=== PATIENT | male | born 1960 | race Caucasian/White ===

== ENCOUNTER 2019-06-11 08:26 | Outpatient (CLI) | payer OTHER, SELFPAY ==
[2019-06-11 08:39] LABS: Add Urine Microscopic? YES; Appearance Urine Clear (Clear); Basophils Absolute Auto 0.04 K/mm3 (0.00-0.10); Basophils Percent Auto 0.6 % (0.0-1.0); Bilirubin Urine Negative (Negative); Blood Urine 1+ (Negative); Color Urine Yellow (Yellow); Eosinophils Absolute Auto 0.18 K/mm3 (0.02-0.50); Eosinophils Percent Auto 2.8 % (1.0-6.0); Glucose Urine UA Negative (Negative); Hematocrit 44.2 % (40.0-54.0); Hemoglobin 14.7 g/dL (14.0-18.0); Immature Granulocyte Absolute 0.02 K/mm3 (0.00-0.00); Immature Granulocyte Percent A 0.3 % (0.0-0.0); Ketones Urine Negative (Negative); Leukocyte Esterase Ur Negative (Negative); Lymphocytes Absolute Auto 2.11 K/mm3 (1.10-4.50); Lymphocytes Percent Auto 32.6 % (18.0-42.0); Mean Corpuscular HGB Conc 33.3 g/dL (32.0-36.0); Mean Corpuscular Hemoglobin 30.6 pg (27.0-31.0); Mean Corpuscular Volume 92.1 fL (78.0-102.0); Mean Platelet Volume 10.3 fl (8.7-11.0); Monocytes Absolute Auto 0.42 K/mm3 (0.10-0.90); Monocytes Percent Auto 6.5 % (2.0-11.0); Neutrophils Absolute Auto 3.7 K/mm3 (1.7-7.2); Neutrophils Percent Auto 57.2 % (50.0-70.0); Nitrate Urine Negative (Negative); Platelet Count Result 225 K/mm3 (150-420); Protein Urine Negative (Negative); Red Cell Distribution Width 13.5 % (11.6-14.4); Specific Grav Ur >= 1.030 (1.010-1.020); Urobilinogen Urine 0.2 mg/dL (0.2-1.0); White Blood Count 6.5 K/mm3 (4.8-10.8); pH Urine 5.5 (5.0-8.0)
[2019-06-11 08:51] LABS: RBC Urine 0-2 /hpf (0-2); WBC Urine 0-3 /hpf (0-3)
[2019-06-11 08:52] LABS: Bacteria Urine Trace /hpf; Mucus Urine Few /lpf; Squamous Epithelial Cell Urine Rare /hpf (Few)
[2019-06-11 09:37] LABS: Alanine Aminotransferase 45 U/L (16-63); Albumin Level 3.9 g/dL (3.4-5.0); Alkaline Phosphatase 72 U/L (46-116); Anion Gap 13.4 mmol/L (7-16); Aspartate Amino Transferase 28 U/L (15-37); Bilirubin,Total 0.5 mg/dL (0.00-1.00); Blood Urea Nitrogen 18 mg/dL (7-18); CRP 0.4 mg/dL (0.0-0.9); Calcium 9.1 mg/dL (8.5-10.1); Carbon Dioxide 27 mmol/L (21-32); Chloride 106 mmol/L (98-108); Cholesterol 215 mg/dL (0-200); Estimated Glomerular Filt Rate > 60; Glucose 122 mg/dL (70-99); HDL Direct 60 mg/dL (40-60); LDL Cholesterol Calculated 136 mg/dL (<130); Osmolality Calculated 296 mOsm/kg (285-295); Potassium 4.4 mmol/L (3.5-5.1); Sodium 142 mmol/L (136-145); Thyroid Stimulating Hormone 1.65 uIU/mL (0.36-3.74); Triglycerides 95 mg/dL (0-150)
[2019-06-14 07:20] LABS: Methylmalonic Acid 111 nmol/L (87-318)
== END 2019-06-11 08:27 | disposition home or self-care (01) ==
PROVIDERS: Visit Provider Internal Medicine
DX: R06.00 Dyspnea, unspecified (principal); R42 Dizziness and giddiness; I95.1 Orthostatic hypotension; E78.5 Hyperlipidemia, unspecified
CPT/HCPCS: 36415; 80053; 80061; 81001; 83921; 84443; 85025; 86140

== ENCOUNTER 2020-02-26 08:07 | Outpatient (CLI) | payer MEDICARE, SELFPAY ==
[2020-02-26 08:23] LABS: Appearance Urine Clear (Clear); Basophils Absolute Auto 0.04 K/mm3 (0.00-0.10); Basophils Percent Auto 0.6 % (0.0-1.0); Bilirubin Urine Negative (Negative); Color Urine Yellow (Yellow); Eosinophils Absolute Auto 0.15 K/mm3 (0.02-0.50); Eosinophils Percent Auto 2.3 % (1.0-6.0); Glucose Urine UA Negative (Negative); Hematocrit 45.9 % (40.0-54.0); Hemoglobin 14.5 g/dL (14.0-18.0); Immature Granulocyte Absolute 0.02 K/mm3 (0.00-0.00); Immature Granulocyte Percent A 0.3 % (0.0-0.0); Ketones Urine Negative (Negative); Leukocyte Esterase Ur Negative LEU/UL (Negative); Lymphocytes Absolute Auto 1.99 K/mm3 (1.10-4.50); Lymphocytes Percent Auto 31.1 % (18.0-42.0); Mean Corpuscular HGB Conc 31.6 g/dL (32.0-36.0); Mean Corpuscular Hemoglobin 29.4 pg (27.0-31.0); Mean Corpuscular Volume 93.1 fL (78.0-102.0); Monocytes Absolute Auto 0.39 K/mm3 (0.10-0.90); Monocytes Percent Auto 6.1 % (2.0-11.0); Neutrophils Absolute Auto 3.8 K/mm3 (1.7-7.2); Neutrophils Percent Auto 59.6 % (50.0-70.0); Nitrate Urine Negative (Negative); Platelet Count Result 238 K/mm3 (150-420); Protein Urine Negative (Negative); Red Blood Count 4.93 M/mm3 (4.70-6.10); Red Cell Distribution Width 13.5 % (11.6-14.4); Specific Grav Ur >= 1.030 (1.010-1.020); Urobilinogen Urine 0.2 mg/dL (0.2-1.0); White Blood Count 6.4 K/mm3 (4.8-10.8); pH Urine 5.5 (5.0-8.0)
[2020-02-26 08:30] LABS: Add Urine Microscopic? YES; Blood Urine Trace-Intact (Negative); Squamous Epithelial Cell Urine None seen /hpf (Few); WBC Urine 0-3 /hpf (0-3)
[2020-02-26 08:31] LABS: Bacteria Urine 1+ /hpf; Mucus Urine Heavy /lpf
[2020-02-26 09:25] LABS: Alanine Aminotransferase 54 U/L (16-63); Albumin Level 3.7 g/dL (3.4-5.0); Alkaline Phosphatase 79 U/L (46-116); Anion Gap 9 mmol/L (8-16); Aspartate Amino Transferase 25 U/L (15-37); Bilirubin,Total 0.5 mg/dL (0.00-1.00); Blood Urea Nitrogen 13 mg/dL (7-18); Calcium 8.7 mg/dL (8.5-10.1); Carbon Dioxide 27 mmol/L (21-32); Chloride 105 mmol/L (98-108); Estimated Glomerular Filt Rate > 60; Glucose 120 mg/dL (70-99); Osmolality Calculated 293 mOsm/kg (285-295); Potassium 4.3 mmol/L (3.5-5.1); Prostate Specific Antigen 1.4 ng/mL (< OR = 4.0); Sodium 141 mmol/L (136-145); Total Protein 6.7 g/dL (6.4-8.2)
== END 2020-02-26 08:08 | disposition home or self-care (01) ==
PROVIDERS: PCP Internal Medicine; Visit Provider Internal Medicine
DX: M25.562 Pain in left knee (principal); Z12.5 Encounter for screening for malignant neoplasm of prostate
CPT/HCPCS: 36415; 80053; 81001; 84153; 85025; 87081; G0103

== ENCOUNTER 2020-03-05 11:06 | Outpatient (CLI) | payer MEDICARE, SELFPAY ==
[2020-03-05 11:40] LABS: Hemoglobin A1C 5.8 % (<5.7)
== END 2020-03-05 11:07 | disposition home or self-care (01) ==
LOC: CHSLAB 11:07
PROVIDERS: PCP Internal Medicine; Visit Provider Internal Medicine
DX: R73.09 Other abnormal glucose (principal)
CPT/HCPCS: 36415; 83036

== ENCOUNTER 2020-03-22 10:38 | Outpatient (RCR) | payer MEDICARE, OTHER, SELFPAY ==
--- NOTE | 2020-03-22 11:44 | PTOPEVAL ---
Thank you for referring Beltran Levin to [facility].? The patient is scheduled to be seen for therapy? __3__x/week for _4__ weeks. Please review, sign, date and return this plan of care DION. I agree with and certify that the following plan of care is medically necessary. Referring Physician Date Admitting Provider: Attending Provider: PHYSICIAN NOT ON STAFF Referring Provider: *PT Outpatient Evaluation Start: 03/22/20 10:59 Freq: Status: Active Protocol: Document 03/22/20 11:00 NICK (Rec: 03/22/20 11:23 NICK [email or web address]) Therapy Assessment Status Assessment Status Assessment Status Evaluation Evaluation Information Problem Diagnosis s/p right TKA Onset 03/18/20 Subjective Information Pt. reports that he underwent Query Text:As Reported By Patient/ knee replacement last week Family . He states that he does have pain. He reports that he is currently doing exercise. He is using a walker. He reports that his goal for therapy is to return to walking normal and reduce pain. Pain Assessment Pain Scale Pain Scale Used Numeric (1 - 10) Self Report Pain Assessment Right Knee(s) Reported Pain Level 6 Lowest Pain Intensity 6 Greatest Pain Intensity 9 Pain Score Pain Score 6: Self Report Lower Extremity Range of Motion General Lower Extremity Range of Motion Gross Lower Extremity Range of Motion right knee AROM 8-74 Comments left knee AROM 0-135 Lower Extremity Muscle Strength Testing General Lower Extremity Strength Gross Lower Extremity Strength right hip flexion 4/5, left hip flexion 5/5, right knee flexion 3/5, left knee flexion 5/5, right knee extension 3/5 , left knee extension 5/5, bilateral ankle dorsiflexion 5 /5 Extremity Circumference Assessment Circumference Assessment Location Right Body Part Knee Site Descriptor ([place]) joint line Circumference (cm) 49 Noninvolved Side Circumference (cm) 44 Gait Assessment Gait Assessment Additional Ambulation Comments Pt. ambulates with use of a ww demonstrating slightly decreased stance time on the right with decreased stride on the left. General Exercise General Exercises Exercise Description
--- NOTE | 2020-04-16 11:01 | PTOPEVAL ---
Thank you for referring Beltran Levin to [facility].? The patient is scheduled to be seen for therapy? ___3_x/week for 6 visits. Please review, sign, date and return this plan of care DION. I agree with and certify that the following plan of care is medically necessary. Referring Physician Date Admitting Provider: Attending Provider: PHYSICIAN NOT ON STAFF Referring Provider: *PT Outpatient Evaluation Start: 03/22/20 10:59 Freq: Status: Active Protocol: Document 04/16/20 10:16 NICK (Rec: 04/16/20 11:00 NICK [email or web address]) Therapy Assessment Status Assessment Status Assessment Status Re-evaluation Evaluation Information Problem Diagnosis s/p right TKA Subjective Information Pt. reports that he is still Query Text:As Reported By Patient/ experiencing pain. He reports Family that he is walking without an AD. He states that he still has pain at night that limits his sleep. He reports that he is still stiffn getting into and out of his vehicle. He still notes slight limp and trouble with walking upright. Pain Assessment Pain Scale Pain Scale Used Numeric (1 - 10) Self Report Pain Assessment Right Knee(s) Reported Pain Level 4 Pain Score Pain Score 4: Self Report Lower Extremity Range of Motion General Lower Extremity Range of Motion Gross Lower Extremity Range of Motion right knee AROM 2-120 degrees Comments Lower Extremity Muscle Strength Testing General Lower Extremity Strength Gross Lower Extremity Strength right hip flexion 4+/5, right knee flexion 4+/5, right knee extension 4+/5, b Extremity Circumference Assessment Circumference Assessment Location Right Body Part Knee Site Descriptor ([place]) joint line Circumference (cm) 47 Noninvolved Side Circumference (cm) 44 Gait Assessment Gait Assessment Additional Ambulation Comments Pt. ambulates over level surface demonstrating decreased stance time on the right with decreased stride length on the left. Pt. requires no AD for ambulation. General Exercise General Exercises Exercise Description -nustep x 10 minutes level 5 Query Text:Record Sets, Reps, -slantboard stretch x 3 Resistance, and Position minutes -step ups x 20 6 -lateral step ups x 20 6
== END 2020-05-05 10:21 | disposition home or self-care (01) ==
LOC: CHSPT 10:38
PROVIDERS: PCP Internal Medicine
DX: Z96.651 Presence of right artificial knee joint (principal)
CPT/HCPCS: 36415; 85610; 97016; 97110; 97161; 97530

== ENCOUNTER 2020-03-29 09:46 | Outpatient (RCR) | payer MEDICARE, SELFPAY ==
[2020-03-22 11:11] LABS: Prothrombin Time 10.2 Seconds (9.64-11.0)
[2020-03-25 09:55] LABS: INR 1.1; Prothrombin Time 11.4 Seconds (9.64-11.0)
[2020-03-29 10:10] LABS: INR 1.3; Prothrombin Time 12.9 Seconds (9.64-11.0)
== END 2020-06-20 23:59 | disposition home or self-care (01) ==
LOC: CHSLAB 09:46
PROVIDERS: PCP Internal Medicine
DX: M17.11 Unilateral primary osteoarthritis, right knee (principal); Z79.01 Long term (current) use of anticoagulants
CPT/HCPCS: 99199; 36415; 85610

== ENCOUNTER 2020-06-09 09:32 | Emergency (ER) | payer MEDICARE, OTHER, SELFPAY ==
--- NOTE | ~2020-06-09 | CT_ITS ---
EXAMINATION: CTA chest PE protocol EXAM DATE: 06/09/2020 11:52 INDICATION: Dyspnea Chest pain and SOB TECHNIQUE: Spiral CTA of the chest (pulmonary arteries) was performed with 100 cc Omnipaque 350 intr avenous contrast injection. Images were acquired during the pulmonary arterial phase. Coronal maxi mum intensity projection 3D-reconstructions were created by the technologist on dedicated workstation . Axial, coronal and sagittal reformatted images were reviewed. The dose-length product (DLP) for t his examination was 739.20 mGy-cm. The exposure was tailored according to patient size (auto mA exp osure control), and iterative reconstruction (ASIR) was used as additional dose reduction technique. Comparison is made to prior examination from 06/19/2019. FINDINGS: There is suboptimal pulmonary arterial opacification. There are no intraluminal filling de fects within the 1st through 3rd order pulmonary arteries. No pulmonary emboli suspected. No thoraci c aortic dissection. The lungs are clear. There are no pleural or pericardial effusions. Tracheo bronchial tree is patent. There is no mediastinal, hilar or axillary lymphadenopathy. There is no pneumothorax. Heart normal in size. There is mild to moderate coronary arterial calcification, a rterial sclerosis. Upper abdomen is unremarkable. There is thoracic spondylosis without osteoblast ic or osteolytic lesions identified. IMPRESSION: Suboptimal opacification but no pulmonary emboli suspected. Clear lungs. Reviewed, dictated and finalized at location A. AL JUDGE IMPRESSION: Suboptimal opacification but no pulmonary emboli suspected. Clear l ungs.
--- NOTE | ~2020-06-09 | XR_ITS ---
XR chest 1V portable 06/09/2020 10:30 Indication: Left-sided chest pain Procedure: AP portable chest Comparison: Comparison to multiple prior studies sequentially, with oldest reviewed study dated 12/04. Findings: Heart size normal. No focal air space disease, pulmonary edema, pleural effusion or suspect ed pneumothorax. No acute osseous abnormality. Impression: 1: No acute cardiopulmonary disease. Reviewed, dictated and finalized at location B. CH SALES AND SERVICE REPRESENTATIVE Impression: 1: No acute cardiopulmonary disease.
--- NOTE | 2020-06-09 09:44 | ED.CHESTPAIN ---
HPI - Chest Pain General Chief Complaint: Chest Pain Stated Complaint: not feeling quite right Time Seen by Provider: 06/09/20 09:36 Source: patient Mode of arrival: ambulatory Limitations: no limitations History of Present Illness HPI narrative: 59-year-old man with a history of smoking comes in today complaining of pain in his left upper chest which started about 5:00 a.m.. He states that lasted for couple of hours and is not diminished but not completely gone. He states he has some lightheadedness at the moment. States that he had some mild shortness of breath with his symptoms but has had no nausea, syncope, vomiting, abdominal pain, cough or cold symptoms, or recent illness. He has had no recent sick exposures. MD complaint: chest pain Onset (ago): hour(s) (4) Timing of current episode: episodic and still present ( But diminished) Prior episodes: No Onset: during rest Pain location: left chest Pain radiation: none Severity: moderate Quality: tightness Relieving factors: nothing Exacerbating factors: nothing Associated symptoms: vomiting and dyspnea Treatment prior to arrival: none Risk Factors Coronary artery disease risk factors: smoking history Related Data Home Medications Medication Instructions Recorded Confirmed lorazepam 1 mg PO TID PRN 06/09/20 06/09/20 Allergies Allergy/AdvReac Type Severity Reaction Status Date / Time No Known Allergies Allergy Verified 06/09/20 09:55 Review of Systems Constitutional: Constitutional: Denies body ache(s) and Denies chills Comments: no fever Eyes: Eyes: Denies change in vision, Denies loss of vision and Denies photophobia ENT: Denies otalgia, Denies facial pain, Reports headache(s) ( last night) and Denies sore throat Cardiovascular: Cardiovascular: Reports as per HPI, Reports chest pain, Denies lightheadedness and Denies palpitations Respiratory: Respiratory: Reports as per HPI, Denies cough, Reports dyspnea, Denies stridor and Denies wheezing Gastrointestinal: Gastrointestinal: Denies abdominal pain, Denies diarrhea, Denies nausea and Denies vomiting Musculoskeletal: Musculoskeletal: Denies back pain, Denies arthralgias and Denies joint swelling Integumentary/Breasts: Skin/Breast: Denies erythema, Denies rash and Denies wounds Neurologic: Denies confusion, Denies vertigo, Denies dizziness, Denies syncope, Denies focal weakness, Denies numbness and Denies weakness Hematologic/Lymphatic: Hematologic/Lymphatic: Denies easy bleeding and Denies easy bruising Allergic/Immunologic: Allergic/Immunologic: Denies urticaria and Denies tongue swelling PMFSH Surgical History Surgical History (Updated 06/09/20 @ 10:17 by Vu Wick MD) H/O knee surgery bilateral Social History Social History (Updated 06/09/20 @ 10:17 by Vu Wick MD) Smoking status: Current every day smoker Alcohol intake: current Substance use type: marijuana Living arrangements: with family Gender identity (if verbalized by the patient): Male Exam Const: General: cooperative, healthy appearing, alert, awake, Physically active and acute distress Nutritional Appearance: overweight Orientation/consciousness: patient oriented x3 Limitations: no limitations HENMT: Head: normal to inspection Ears: external ears normal, TM's normal bilaterally and EAC's normal General nose exam: Normal external nose present Face and sinus: normal facial exam Mouth: Yes Normal oral and palatal mucosa present Throat: posterior oropharynx normal Eyes: Pupils: Equal, round and reactive pupils present EOM: EOMs intact bilaterally Resp: Effort & Inspection: normal respiratory effort, able to speak in complete sentences, not labored and no respiratory distress Auscultation: clear to auscultation bilaterally, no rales, no rhonchi and no wheezes Cardio: Rate: regular rate Rhythm: regular rhythm Heart sounds: no murmurs GI: GI Palp: No abdominal tenderness Auscultation: normal
[2020-06-09 09:45] VITALS: BP 136/78; PULSE 94; RESP 18; TEMP 36.6; O2SAT 98
--- NOTE | 2020-06-09 09:45 | ECG_ITS ---
Measurements Intervals [place] Rate: 94 P: 65 SD: 141 QRS: 78 QRSD: 89 T: 40 QT: 343 QTc: 430 Interpretive Statements SINUS RHYTHM BORDERLINE ST ABNORMALITY- ANTEROLAT/INF LEADS BASELINE WANDER- III, AVR, AVL, AVF BORDERLINE ECG Electronically Signed On 06-09-2020 10:02:18 MOVEMENT ASSEMBLER by Jorge Arias D.O.
[2020-06-09 10:11] LABS: Basophils Absolute Auto 0.02 K/mm3 (0.00-0.10); Basophils Percent Auto 0.4 % (0.0-1.0); Eosinophils Absolute Auto 0.06 K/mm3 (0.02-0.50); Eosinophils Percent Auto 1.3 % (1.0-6.0); Hematocrit 42.1 % (40.0-54.0); Hemoglobin 13.6 g/dL (14.0-18.0); Immature Granulocyte Absolute 0.01 K/mm3 (0.00-0.00); Immature Granulocyte Percent A 0.2 % (0.0-0.0); Lymphocytes Absolute Auto 0.65 K/mm3 (1.10-4.50); Lymphocytes Percent Auto 14.1 % (18.0-42.0); Mean Corpuscular HGB Conc 32.3 g/dL (32.0-36.0); Mean Corpuscular Hemoglobin 29.5 pg (27.0-31.0); Mean Corpuscular Volume 91.3 fL (78.0-102.0); Mean Platelet Volume 10.8 fl (8.7-11.0); Monocytes Absolute Auto 0.46 K/mm3 (0.10-0.90); Neutrophils Absolute Auto 3.4 K/mm3 (1.7-7.2); Platelet Count Result 233 K/mm3 (150-420); Red Blood Count 4.61 M/mm3 (4.70-6.10); Red Cell Distribution Width 14.5 % (11.6-14.4); White Blood Count 4.6 K/mm3 (4.8-10.8)
[2020-06-09 10:29] LABS: Alanine Aminotransferase 52 U/L (16-63); Albumin Level 3.9 g/dL (3.4-5.0); Alkaline Phosphatase 81 U/L (46-116); Anion Gap 11 mmol/L (8-16); Aspartate Amino Transferase 23 U/L (15-37); Bilirubin,Total 0.3 mg/dL (0.00-1.00); Blood Urea Nitrogen 17 mg/dL (7-18); Calcium 9.2 mg/dL (8.5-10.1); Carbon Dioxide 25 mmol/L (21-32); Chloride 103 mmol/L (98-108); Estimated Glomerular Filt Rate > 60; Glucose 105 mg/dL (70-99); Lipase 139 U/L (73-393); Osmolality Calculated 289 mOsm/kg (285-295); Potassium 4.1 mmol/L (3.5-5.1); Sodium 139 mmol/L (136-145); Total Protein 7.4 g/dL (6.4-8.2); Troponin I 5.5 ng/L (0.00-60.4)
[2020-06-09] MEDS: ASPIRIN 81 MG CHEWABLE TABLET 324 MG PO (10:29)
[2020-06-09 10:51] LABS: SARS-CoV-2 Ag Negative (Negative)
[2020-06-09 10:54] LABS: Partial Thromboplastin Time 26.4 SEC (23.90-30.70)
[2020-06-09 10:59] LABS: D Dimer 0.72 mg/L (0.19-0.50)
[2020-06-09 11:01] VITALS: BP 124/68; PULSE 77; RESP 16; O2SAT 99
--- NOTE | 2020-06-09 11:27 | PC.NURSE ---
to xray per wheelchair for chest ct.
--- NOTE | 2020-06-09 12:00 | PC.NURSE ---
pt return to room from xray, explained need for urine. water given
[2020-06-09 12:17] LABS: Add Urine Microscopic? NO; Appearance Urine Clear (Clear); Bilirubin Urine Negative (Negative); Blood Urine Negative (Negative); Color Urine Yellow (Yellow); Glucose Urine UA Negative (Negative); Ketones Urine Negative (Negative); Leukocyte Esterase Ur Negative LEU/UL (Negative); Nitrate Urine Negative (Negative); Protein Urine Negative (Negative); Urobilinogen Urine 0.2 mg/dL (0.2-1.0)
--- NOTE | 2020-06-09 12:20 | PC.NURSE ---
food tray given
[2020-06-09 12:55] LABS: INR 0.9; Prothrombin Time 10.3 Seconds (9.50-12.10)
[2020-06-09 13:00] LABS: Troponin I 5.2 ng/L (0.00-60.4)
[2020-06-09 13:25] VITALS: BP 112/71; PULSE 76; RESP 20; TEMP 36.9; O2SAT 98
--- NOTE | 2020-06-09 13:25 | PC.NURSE ---
Pt to room 203 per wc with ER staff. A&Ox3. Has no questions or concerns. Oriented to room. Call duckworth in reach, reminded to call with needs.
[2020-06-09 13:47] LABS: INR 0.9; Prothrombin Time 9.9 Seconds (9.50-12.10)
--- NOTE | 2020-06-09 13:50 | PC.NURSE ---
1310 pt to floor room 203 per wheelchair with YESSICA Negron.
[2020-06-09 15:44] VITALS: BP 115/73; PULSE 83; RESP 18; TEMP 36.9; O2SAT 95
--- NOTE | 2020-06-09 15:45 | PC.NURSE ---
Resting in bed, no pain, no sob
--- NOTE | 2020-06-09 17:33 | PC.NURSE ---
ate well for dinner, no chest pain, awaiting blood draw at 1800
[2020-06-09 18:30] LABS: Troponin I 5.7 ng/L (0.00-60.4)
--- NOTE | 2020-06-09 18:35 | PC.NURSE ---
notified of current Troponin level. No new orders at this time.
== END 2020-06-09 19:03 | disposition home or self-care (01) ==
LOC: CHSED 09:42 → CHS2ND 12:44
PROVIDERS: Emergency Provider Emergency Medicine; PCP Internal Medicine
DX: R07.9 Chest pain, unspecified (principal); R06.02 Shortness of breath; Z20.828 Contact with and (suspected) exposure to other viral communicable diseases
CPT/HCPCS: 36415; 71045; 71275; 80053; 81003; 83690; 83880; 84484; 85025; 85380; 85610; 85730; 87426; 93005; 99284; A9270; Q9965

== ENCOUNTER 2021-03-07 08:48 | Outpatient (CLI) | payer MEDICARE, OTHER, SELFPAY ==
--- NOTE | ~2021-03-07 | XR_ITS ---
EXAMINATION: XR lumbar spine 2-3V DATE: 03/07/2021 09:41 INDICATION: Back pain TECHNIQUE: Anteroposterior and lateral views of the lumbar spine, and cone-down lateral view of the l umbosacral junction were obtained. COMPARISON: None. FINDINGS: There are 2 mm retrolisthesis of L3 on L4. There is mild loss of intervertebral disc space height throughout the lumbar spine. Small degenerative osteophytes project from the anterior endplate s of multiple vertebral bodies. Moderate osteoarthritis is present in the lower lumbar spine. IMPRESSION: 1. Mild lumbar spondylosis without acute findings. Reviewed, dictated and finalized at location A.
[2021-03-07 09:00] LABS: Basophils Absolute Auto 0.03 K/mm3 (0.00-0.10); Basophils Percent Auto 0.4 % (0.0-1.0); Eosinophils Absolute Auto 0.15 K/mm3 (0.02-0.50); Hemoglobin 14.5 g/dL (14.0-18.0); Immature Granulocyte Absolute 0.02 K/mm3 (0.00-0.00); Immature Granulocyte Percent A 0.3 % (0.0-0.0); Lymphocytes Absolute Auto 1.67 K/mm3 (1.10-4.50); Lymphocytes Percent Auto 22.3 % (18.0-42.0); Mean Corpuscular Hemoglobin 30.5 pg (27.0-31.0); Mean Corpuscular Volume 92.6 fL (78.0-102.0); Mean Platelet Volume 10.4 fl (8.7-11.0); Monocytes Absolute Auto 0.41 K/mm3 (0.10-0.90); Monocytes Percent Auto 5.5 % (2.0-11.0); Neutrophils Absolute Auto 5.2 K/mm3 (1.7-7.2); Neutrophils Percent Auto 69.5 % (50.0-70.0); Platelet Count Result 244 K/mm3 (150-420); Red Blood Count 4.75 M/mm3 (4.70-6.10); Red Cell Distribution Width 13.7 % (11.6-14.4); White Blood Count 7.5 K/mm3 (4.8-10.8)
[2021-03-07 09:05] LABS: Appearance Urine Clear (Clear); Bilirubin Urine Negative (Negative); Color Urine Yellow (Yellow); Glucose Urine UA Negative (Negative); Ketones Urine Negative (Negative); Leukocyte Esterase Ur Negative (Negative); Nitrate Urine Negative (Negative); Protein Urine Negative (Negative); Specific Grav Ur 1.025 (1.010-1.020); Urobilinogen Urine 0.2 mg/dL (0.2-1.0)
[2021-03-07 09:15] LABS: Add Urine Microscopic? YES; Blood Urine Trace-Intact (Negative); RBC Urine 0-2 /hpf (0-2); Squamous Epithelial Cell Urine Rare /hpf (Few); WBC Urine None seen /hpf (0-3)
[2021-03-07 09:16] LABS: Bacteria Urine None seen /hpf; Mucus Urine Moderate /lpf
[2021-03-07 11:17] LABS: Alanine Aminotransferase 75 U/L (16-63); Albumin Level 3.8 g/dL (3.4-5.0); Alkaline Phosphatase 107 U/L (46-116); Anion Gap 11 mmol/L (8-16); Aspartate Amino Transferase 30 U/L (15-37); Bilirubin,Total 0.5 mg/dL (0.00-1.00); Blood Urea Nitrogen 16 mg/dL (7-18); CRP 0.8 mg/dL (0.0-0.9); Carbon Dioxide 26 mmol/L (21-32); Chloride 106 mmol/L (98-108); Cholesterol 160 mg/dL (0-200); Estimated Glomerular Filt Rate > 60; Glucose 111 mg/dL (70-99); HDL Direct 48 mg/dL (40-60); LDL Cholesterol Calculated 75 mg/dL (<130); Osmolality Calculated 298 mOsm/kg (285-295); Potassium 4.4 mmol/L (3.5-5.1); Prostate Specific Antigen 0.7 ng/mL (< OR = 4.0); Sodium 143 mmol/L (136-145); Thyroid Stimulating Hormone 1.16 uIU/mL (0.36-3.74); Total Protein 7.1 g/dL (6.4-8.2); Triglycerides 187 mg/dL (0-150)
[2021-03-08 09:36] LABS: Hemoglobin A1C 5.6 % (<5.7)
[2021-03-09 19:33] LABS: Hepatitis A Antibody IgM Nonreactive; Hepatitis B Core Antibody Nonreactive (Nonreactive); Hepatitis B Surface Antigen Nonreactive (Nonreactive); Hepatitis C Signal to Cutoff 0.01 ratio (<1.00); Hepatitis C Virus Antibody Nonreactive (Nonreactive)
== END 2021-03-07 08:49 | disposition home or self-care (01) ==
LOC: CHSLAB 08:49
PROVIDERS: PCP Internal Medicine; Visit Provider Internal Medicine
DX: I25.10 Atherosclerotic heart disease of native coronary artery without angina pectoris (principal); Z12.5 Encounter for screening for malignant neoplasm of prostate; M54.9 Dorsalgia, unspecified; Z00.00 Encounter for general adult medical examination without abnormal findings; R94.5 Abnormal results of liver function studies; R53.81 Other malaise; R73.09 Other abnormal glucose
CPT/HCPCS: 36415; 72100; 80053; 80061; 80074; 81001; 83036; 84153; 84443; 85025; 86140; G0103

== ENCOUNTER 2021-03-25 08:22 | Outpatient (CLI) | payer MEDICARE, OTHER, SELFPAY ==
--- NOTE | ~2021-03-25 | US_ITS ---
EXAMINATION: US right upper quadrant DATE: 03/25/2021 08:47 INDICATION: Abnormal liver enzymes TECHNIQUE: Multiple grayscale and Doppler ultrasound images of the abdomen were obtained. COMPARISON: 08/05/2007 FINDINGS: Bowel gas obscures visualization of the pancreas. The visualized portions of the pancreas a re unremarkable. The liver is normal with normal echogenicity and echotexture. No surface nodularity. Normal hepatopetal flow in the main portal vein. The gallbladder is incompletely distended. There ap pears to be a 5 mm polyp in the gallbladder. The normal common bile duct measures 4 mm. There was no sonographic Levin sign. IMPRESSION: 1. No sonographic correlate for the patient's symptoms. Reviewed, dictated and finalized at location A.
== END 2021-03-25 08:23 | disposition home or self-care (01) ==
PROVIDERS: PCP Internal Medicine; Visit Provider Internal Medicine
DX: R94.5 Abnormal results of liver function studies (principal)
CPT/HCPCS: 76705

== ENCOUNTER 2021-04-18 09:17 | Outpatient (CLI) | payer MEDICARE, SELFPAY ==
[2021-04-18 11:22] LABS: Alanine Aminotransferase 71 U/L (16-63); Albumin Level 3.7 g/dL (3.4-5.0); Alkaline Phosphatase 99 U/L (46-116); Anion Gap 10 mmol/L (8-16); Aspartate Amino Transferase 26 U/L (15-37); Bilirubin,Total 0.5 mg/dL (0.00-1.00); Blood Urea Nitrogen 12 mg/dL (7-18); Carbon Dioxide 27 mmol/L (21-32); Chloride 105 mmol/L (98-108); Estimated Glomerular Filt Rate > 60; Glucose 114 mg/dL (70-99); Osmolality Calculated 294 mOsm/kg (285-295); Potassium 4.5 mmol/L (3.5-5.1); Sodium 142 mmol/L (136-145); Total Protein 7.1 g/dL (6.4-8.2)
== END 2021-04-18 09:18 | disposition home or self-care (01) ==
LOC: CHSLAB 09:20
PROVIDERS: PCP Internal Medicine; Visit Provider Internal Medicine
DX: R94.5 Abnormal results of liver function studies (principal)
CPT/HCPCS: 36415; 80053

== ENCOUNTER 2021-06-15 12:36 | Outpatient (CLI) | payer MEDICARE, OTHER, SELFPAY ==
--- NOTE | ~2021-06-15 | CT_ITS ---
EXAMINATION: CT lung screening DATE: 06/15/2021 13:07 INDICATION: Lung Cancer Screening hx tobacco dependence, COPD, quit smoking 2mo ago TECHNIQUE: Computed tomography (CT) of the chest was performed without intravenous contrast. Addition al 3D reconstructions utilizing coronal maximum intensity projection (MIP) were performed. Automated exposure control and iterative reconstruction technique were employed. The dose-length product was 27 6.61 mGy-cm. COMPARISON: CT dated 06/09/2020 and 06/19/2019 FINDINGS: Mild biapical pleural-parenchymal scarring. Chronic unchanged 2 mm and 4 mm nodules in the left lower lobe. No new or enlarging pulmonary nodules. Mild linear atelectasis/scarring at the lingula and ant eromedial basilar left lower lobe. No pneumonia, pulmonary edema or pleural effusion. Heart size is n ormal. Atherosclerotic coronary artery calcification. No pericardial effusion. Thoracic aorta is norm al in caliber. No pathologically enlarged diffuse hepatic steatosis. lymphadenopathy. There are bridg ing osteophytes at multiple levels in the spine, consistent with diffuse idiopathic skeletal hyperost osis (DISH). IMPRESSION: 1. Lung-RADS category 2: Benign appearance or behavior. Continue annual screening with noncontrast lo w-dose chest CT in 12 months. Reviewed, dictated and finalized at location B. SOLUTIONS ARCHITECT IMPRESSION: 1. Lung-RADS category 2: Benign appearance or behavior. Continue annual screeni ng with noncontrast low-dose chest CT in 12 months.
== END 2021-06-15 12:37 | disposition home or self-care (01) ==
LOC: CHSIMG 12:39
PROVIDERS: PCP Internal Medicine; Visit Provider Internal Medicine
DX: Z12.2 Encounter for screening for malignant neoplasm of respiratory organs (principal); Z87.891 Personal history of nicotine dependence
CPT/HCPCS: 71271

== ENCOUNTER 2021-12-06 16:00 | Outpatient (CLI) | payer MEDICARE, OTHER, SELFPAY ==
--- NOTE | ~2021-12-06 | CT_ITS ---
EXAMINATION: CTA chest PE protocol DATE: 12/06/2021 17:48 INDICATION: Chest pain TECHNIQUE: Computed tomography angiography (CTA) of the chest was performed with 100 mL Omnipaque-350 intravenous contrast timed to evaluate the pulmonary arteries. Coronal maximum intensity projection 3D-reconstructions were created by the technologist. The dose-length product (DLP) was 870.21 mGy-cm. Automated exposure control and iterative reconstruction technique were employed. COMPARISON: 06/15/2021 FINDINGS: The pulmonary arteries are moderately well-opacified. No central pulmonary embolism is iden tified. There is mild dependent atelectasis. The lungs are free of focal airspace opacities. There is no pleural effusion or pneumothorax. No pathologically enlarged thoracic lymph nodes are identified. The heart size is normal. Calcified coronary artery atherosclerosis is noted. There is mild thoracic spondylosis. IMPRESSION: 1. No pulmonary embolism or acute cardiopulmonary abnormality, sensitivity mildly limited by late con trast bolus timing Reviewed, dictated and finalized at location F. IMPRESSION: 1. No pulmonary embolism or acute cardiopulmonary abnormality, sensitivity mild ly limited by late contrast bolus timing
--- NOTE | ~2021-12-06 | XR_ITS ---
EXAMINATION: XR chest 2V DATE: 12/06/2021 16:31 INDICATION: Abnormal electrocardiogram. Dizziness. TECHNIQUE: Frontal and lateral views of the chest were obtained on 3 radiographs. COMPARISON: Chest single view 06/09/2020 FINDINGS: There is mild scarring at the lung apices. No pleural effusion or pneumothorax. The heart s ize is normal. IMPRESSION: 1. Mild scarring at the lung apices. Reviewed, dictated and finalized at location A.
[2021-12-06 16:20] LABS: Basophils Absolute Auto 0.03 K/mm3 (0.00-0.10); Basophils Percent Auto 0.4 % (0.0-1.0); Eosinophils Absolute Auto 0.07 K/mm3 (0.02-0.50); Hematocrit 40.4 % (40.0-54.0); Hemoglobin 13.1 g/dL (14.0-18.0); Immature Granulocyte Absolute 0.03 K/mm3 (0.00-0.00); Immature Granulocyte Percent A 0.4 % (0.0-0.0); Lymphocytes Percent Auto 24.5 % (18.0-42.0); Mean Corpuscular HGB Conc 32.4 g/dL (32.0-36.0); Mean Corpuscular Hemoglobin 29.5 pg (27.0-31.0); Mean Platelet Volume 10.7 fl (8.7-11.0); Monocytes Absolute Auto 0.57 K/mm3 (0.10-0.90); Monocytes Percent Auto 8.2 % (2.0-11.0); Neutrophils Absolute Auto 4.5 K/mm3 (1.7-7.2); Neutrophils Percent Auto 65.5 % (50.0-70.0); Platelet Count Result 275 K/mm3 (150-420); Red Blood Count 4.44 M/mm3 (4.70-6.10); Red Cell Distribution Width 13.9 % (11.6-14.4); White Blood Count 6.9 K/mm3 (4.8-10.8)
[2021-12-06 16:21] LABS: Appearance Urine Clear (Clear); Bilirubin Urine 1+ (Negative); Blood Urine Negative (Negative); Glucose Urine UA Trace (Negative); Ketones Urine Trace (Negative); Leukocyte Esterase Ur Negative LEU/UL (Negative); Nitrate Urine Negative (Negative); Protein Urine 2+ (Negative); Specific Grav Ur >= 1.030 (1.010-1.020); Urobilinogen Urine 0.2 mg/dL (0.2-1.0)
[2021-12-06 16:31] LABS: Add Urine Microscopic? YES; Bacteria Urine Trace /hpf; Color Urine Dark Orange (Yellow); Mucus Urine Moderate /lpf; RBC Urine None seen /hpf (0-2); Squamous Epithelial Cell Urine Rare /hpf (Few); WBC Urine None seen /hpf (0-3)
[2021-12-06 16:44] LABS: D Dimer 0.53 mg/L (0.19-0.50)
[2021-12-06 17:03] LABS: Alanine Aminotransferase 58 U/L (16-63); Alkaline Phosphatase 84 U/L (46-116); Anion Gap 7 mmol/L (8-16); Aspartate Amino Transferase 23 U/L (15-37); Bilirubin,Total 0.4 mg/dL (0.00-1.00); Blood Urea Nitrogen 16 mg/dL (7-18); CRP 0.5 mg/dL (0.0-0.9); Carbon Dioxide 27 mmol/L (21-32); Chloride 104 mmol/L (98-108); Creatine Kinase 176 U/L (39-308); Estimated Glomerular Filt Rate > 60; Glucose 89 mg/dL (70-99); Magnesium 2.1 mg/dL (1.8-2.4); Osmolality Calculated 286 mOsm/kg (285-295); Potassium 3.8 mmol/L (3.5-5.1); Sodium 138 mmol/L (136-145); Total Protein 7.3 g/dL (6.4-8.2)
[2021-12-06 18:12] LABS: NT Pro B Type Natriuretic Pept 117 pg/mL (0-125)
== END 2021-12-06 16:01 | disposition home or self-care (01) ==
PROVIDERS: PCP Internal Medicine; Visit Provider Nurse Practitioner Family
DX: R94.31 Abnormal electrocardiogram [ECG] [EKG] (principal); R07.9 Chest pain, unspecified; R42 Dizziness and giddiness; R79.1 Abnormal coagulation profile; I95.9 Hypotension, unspecified; I50.9 Heart failure, unspecified
CPT/HCPCS: 36415; 71046; 71275; 80053; 81001; 82550; 82553; 83735; 83880; 84443; 84484; 85025; 85380; 86140; Q9967

== ENCOUNTER 2021-12-19 08:59 | Outpatient (CLI) | payer MEDICARE, OTHER, SELFPAY ==
--- NOTE | ~2021-12-19 | CT_ITS ---
EXAMINATION: CT brain wo con DATE: 12/19/2021 09:52 INDICATION: Dizziness. Light sensitivity. TECHNIQUE: Computed tomography (CT) of the head was performed without intravenous contrast. The mA wa s adjusted according to patient size. Iterative reconstruction technique was employed. Exam dose: 60 5.33 mGy-cm total exam DLP. COMPARISON: None FINDINGS: Bilateral carotid siphon internal carotid artery calcifications. No intracranial mass lesion or hemorrhage or cerebrovascular accident. No midline shift or mass effec t effect. No subdural or epidural hematoma. There is mild periosteal thickening of the left frontal sinus the ethmoid air cells. Slight mucoperio steal thickening of the sphenoid sinuses. The mastoid air cells are well-developed and aerated. No fracture or bone destruction of the cranial vault. IMPRESSION: Cerebral atherosclerosis No acute intracranial finding Reviewed, dictated and finalized at Location A. Reviewed, dictated and finalized at location A.
== END 2021-12-19 09:00 | disposition home or self-care (01) ==
LOC: CHSIMG 09:02
PROVIDERS: PCP Internal Medicine; Visit Provider Internal Medicine
DX: R42 Dizziness and giddiness (principal)
CPT/HCPCS: 70450

== ENCOUNTER 2021-12-21 08:51 | Outpatient (CLI) | payer MEDICARE, OTHER, SELFPAY ==
--- NOTE | ~2021-12-21 | US_ITS ---
EXAMINATION: US carotid duplex BI DATE: 12/21/2021 09:28 INDICATION: Dizziness. Headache. TECHNIQUE: Grayscale, color Doppler, and pulsed Doppler images of the cervical carotid arteries were obtained. The degree of vessel stenosis is placed in one of the following categories: normal, <50%, 5 0-69%, >=70% but less than near-occlusion, near-occlusion, or total occlusion. Note that percent sten osis relative to normal distal artery lumen diameter is indirectly measured from velocity measurement s as described by Rolando, et al. Radiology 2003; 229:340-346. COMPARISON: None. FINDINGS: RIGHT: The right common carotid artery (CCA) peak systolic velocity (PSV) is 144 cm/s. The right internal ca rotid artery (ICA) PSV is 91 cm/s. The right ICA end-diastolic velocity (EDV) is 23 cm/s. The right I CA/CCA PSV ratio is 0.6. Grayscale and color Doppler images yield an estimate of <50% diameter reduct ion from plaque in the ICA. There is antegrade flow in the right vertebral artery. LEFT: The left CCA PSV is 113 cm/s. The left ICA PSV is 105 cm/s. The left ICA EDV is 21 cm/s. The left ICA /CCA PSV ratio is 0.9. Grayscale and color Doppler images yield an estimate of <50% diameter reductio n from plaque in the ICA. There is antegrade flow in the left vertebral artery. IMPRESSION: 1. <50% stenosis in the right internal carotid artery. 2. <50% stenosis in the left internal carotid artery. Reviewed, dictated and finalized at location B.
== END 2021-12-21 08:52 | disposition home or self-care (01) ==
LOC: CHSIMG 08:52
PROVIDERS: PCP Internal Medicine; Visit Provider Internal Medicine
DX: R42 Dizziness and giddiness (principal); R51.9 Headache, unspecified
CPT/HCPCS: 93880

== ENCOUNTER 2022-02-03 07:52 | Outpatient (CLI) | payer MEDICARE, SELFPAY ==
[2022-02-03 08:34] LABS: Alanine Aminotransferase 51 U/L (16-63); Cholesterol 130 mg/dL (0-200); HDL Direct 60 mg/dL (40-60); LDL Cholesterol Calculated 57 mg/dL (<130); Triglycerides 63 mg/dL (0-150)
== END 2022-02-03 07:53 | disposition home or self-care (01) ==
LOC: CHSLAB 07:55
PROVIDERS: PCP Internal Medicine; Visit Provider Internal Medicine Cardiovascular Disease
DX: E78.5 Hyperlipidemia, unspecified (principal); Z79.899 Other long term (current) drug therapy
CPT/HCPCS: 36415; 80061; 84460

== ENCOUNTER 2022-10-24 00:44 | Day surgery (SDC) | payer MEDICARE, OTHER, SELFPAY ==
[2022-10-12 11:41] VITALS: BMI 33.4
--- NOTE | 2022-10-23 09:58 | P.PNAN_ITS ---
Anes - Initial Pre Proc Eval Procedure: Operation Date: 10/24/22 07:30 Proposed Procedures p Colonoscopy - Rajendra Torres MD Date/Time: 10/23/22 09:58 Surgeon: Rajendra Torres MD Pre Op Diagnosis: hx colon polyps Patient Data Age: 62 Gender: M Height: 1.88 m Weight: 118 kg Allergies Allergy/AdvReac Type Severity Reaction Status Date / Time No Known Allergies Allergy Verified 10/24/22 06:20 Home Medications Medication Instructions Recorded Confirmed Type lorazepam 1 mg tablet 1 mg PO TID PRN Anxiety 06/09/20 10/24/22 History omeprazole 20 mg capsule,delayed 20 mg PO DAILY 10/12/22 10/24/22 History release rosuvastatin 10 mg tablet 10 mg PO DAILY 10/12/22 10/24/22 History Patient hx anesthesia problems: none Family hx anesthesia problems: none Results Review: All pre-operative results and documents have been reviewed as part of the pre- operative evaluation. [facility] Past Medical History Medical History (Updated 10/23/22 @ 09:59 by Inocencio Burroughs DO) Anxiety COPD (chronic obstructive pulmonary disease) GERD (gastroesophageal reflux disease) Hyperlipidemia Surgical History Surgical History (Updated 06/09/20 @ 10:17 by Vu Wick MD) H/O knee surgery bilateral Social History Social History (Updated 06/09/20 @ 10:17 by Vu Wick MD) Years smoked: 40 Smoking status: Former smoker Tobacco type: cigarettes Alcohol intake: current Drinks per week: 8 Substance use: current Substance use type: marijuana Other substance usage details: edibles Last use: 10/04/22 Living arrangements: alone Gender identity (if verbalized by the patient): Male Anes - Eval Final PreProcedure Day of Procedure 10/23/22 09:58 Patient weight: obese Heart: regular rate and rhythm Lungs: clear to auscultation Airway: Mallampati scale class II Neurological: alert and oriented Last oral intake: >/= 8 hours ASA classification: III Emergent: no Anesthetic plan: proceed Anesthesia type and monitoring: general GIVS and standard monitoring Results Review: All pre-operative results and documents have been reviewed as part of the pre- operative evaluation. Informed Consent: The patient's anesthetic plan and its attendant risks and benefits were discussed with the patient/family/POA. Questions were solicited and answers provided to the satisfaction of the patient/family/POA.
[2022-10-24 06:15] VITALS: BP 131/82; PULSE 81; RESP 18; TEMP 36.6; O2SAT 99; BMI 33.3
[2022-10-24] MEDS: LACTATED RINGERS 1,000 ML 150 ML IV CONT (06:33)
--- NOTE | 2022-10-24 07:25 | PM.HPGS ---
History of Present Illness History of Present Illness Consent: Risks, benefits, and alternatives have been discussed and questions answered. Patient agrees to proceed with procedure. Chief complaint: hx colon polyps Narrative: Beltran Levin is a 62 year old male Presents for screening colonoscopy. Patient's current weight appetite and bowel movements are normal. Patient denies abdominal pain. He has had no bleeding. Family history noncontributory. Patient has a history of adenomatous colon polyp removed at prior colonoscopy 2018. Review of Systems Review of Systems: Review of systems is noncontributory. [facility] Past Medical History Medical History (Updated 10/24/22 @ 07:27 by Rajendra Torres MD) Anxiety COPD (chronic obstructive pulmonary disease) GERD (gastroesophageal reflux disease) Hyperlipidemia Surgical History Surgical History (Updated 06/09/20 @ 10:17 by Vu Wick MD) H/O knee surgery bilateral Social History Social History (Updated 06/09/20 @ 10:17 by Vu Wick MD) Years smoked: 40 Smoking status: Former smoker Tobacco type: cigarettes Alcohol intake: current Drinks per week: 8 Substance use: current Substance use type: marijuana Other substance usage details: edibles Last use: 10/04/22 Living arrangements: alone Gender identity (if verbalized by the patient): Male Meds Home Medications and Allergies Home Medications Medication Instructions Recorded Confirmed Type lorazepam 1 mg tablet 1 mg PO TID PRN Anxiety 06/09/20 10/24/22 History omeprazole 20 mg capsule,delayed 20 mg PO DAILY 10/12/22 10/24/22 History release rosuvastatin 10 mg tablet 10 mg PO DAILY 10/12/22 10/24/22 History Allergies Allergy/AdvReac Type Severity Reaction Status Date / Time No Known Allergies Allergy Verified 10/24/22 06:20 Vital Signs Vital Signs - 24 hr 10/24/22 06:15 Temperature 97.9 F Pulse Rate 81 Respiratory Rate 18 Blood Pressure 131/82 Pulse Oximetry 99 Oxygen Delivery Room Air Exam Narrative: Physical exam reveals patient to be alert. Vital signs stable. HEENT exam is unremarkable. Patient is anicteric. Lungs are clear to auscultation and percussion. Heart is without murmur or extra sounds. Abdomen bowel sounds are present soft nontender with no organomegaly. Digital external rectal exam is normal. Assessment and Plan Assessment and plan (1) History of colon polyps: Code(s): Z86.010 - Personal history of colonic polyps Status: Acute Assessment and Plan: Patient has a history of adenomatous colon polyp removed from the colon in 2018. Plan for surveillance colonoscopy now. Further recommendations may be given after endoscopy.
[2022-10-24 07:45] VITALS: BP 115/72; PULSE 81; RESP 22; O2SAT 97
[2022-10-24 07:55] VITALS: BP 114/66; PULSE 69; RESP 19; O2SAT 99
[2022-10-24 08:05] VITALS: BP 158/76; PULSE 67; RESP 16; O2SAT 99
== END 2022-10-24 08:15 | disposition home or self-care (01) ==
PROVIDERS: PCP Internal Medicine; Visit Provider Internal Medicine Gastroenterology
PROC: 0DJD8ZZ Inspection of Lower Intestinal Tract, Via Natural or Artificial Opening Endoscopic (ICD-10-PCS; CPT 45378; principal; 2022-10-24 07:30)
DX: Z12.11 Encounter for screening for malignant neoplasm of colon (principal); D12.3 Benign neoplasm of transverse colon; K63.5 Polyp of colon; K64.8 Other hemorrhoids; K57.30 Diverticulosis of large intestine without perforation or abscess without bleeding; J44.9 Chronic obstructive pulmonary disease, unspecified; E78.5 Hyperlipidemia, unspecified; K21.9 Gastro-esophageal reflux disease without esophagitis; F41.9 Anxiety disorder, unspecified; Z87.891 Personal history of nicotine dependence; F12.90 Cannabis use, unspecified, uncomplicated; E66.9 Obesity, unspecified; Z68.33 Body mass index [BMI] 33.0-33.9, adult
CPT/HCPCS: 45385; 88305; J2704; J7120

== ENCOUNTER 2022-12-07 09:46 | Outpatient (CLI) | payer MEDICARE, OTHER, SELFPAY ==
--- NOTE | ~2022-12-07 | CT_ITS ---
CT Scan of the Chest without Contrast: Clinical Indication: Lung cancer screening, personal history of nicotine dependence Technique: Contiguous sections were acquired throughout the chest without intravenous contrast. Dose reduction technique was used on this scan by utilizing automated exposure control and iterative recon struction technique. The dose-length product (DLP) was 224.28 mGy-cm. COMPARISON: 12/06/2021, 06/15/2021 Findings: There is no evidence of any significant mediastinal, hilar or axillary lymphadenopathy. Coronary radu ry calcifications are present. There is no evidence of pleural or pericardial effusion. 3 mm left lower lobe pulmonary nodule noted (axial image 96). Images through the upper abdomen reveal no abnormalities. Impression: Lung RADS 2: Benign appearance. 12 month follow-up screening CT advised. Reviewed, dictated and finalized at [facility]. Impression: Lung RADS 2: Benign appearance. 12 month follow-up screening CT advised.
== END 2022-12-07 09:47 | disposition home or self-care (01) ==
PROVIDERS: PCP Internal Medicine; Visit Provider Internal Medicine
DX: Z12.2 Encounter for screening for malignant neoplasm of respiratory organs (principal); Z87.891 Personal history of nicotine dependence
CPT/HCPCS: 71271

== ENCOUNTER 2022-12-25 12:18 | Outpatient (CLI) | payer MEDICARE, OTHER, SELFPAY ==
[2022-12-25 12:41] LABS: Basophils Absolute Auto 0.04 K/mm3 (0.00-0.10); Basophils Percent Auto 0.6 % (0.0-1.0); Eosinophils Absolute Auto 0.03 K/mm3 (0.02-0.50); Eosinophils Percent Auto 0.5 % (1.0-6.0); Hemoglobin 15.1 g/dL (14.0-18.0); Immature Granulocyte Absolute 0.01 K/mm3 (0.00-0.00); Immature Granulocyte Percent A 0.2 % (0.0-0.0); Lymphocytes Absolute Auto 1.53 K/mm3 (1.10-4.50); Lymphocytes Percent Auto 24.2 % (18.0-42.0); Mean Corpuscular HGB Conc 33.6 g/dL (32.0-36.0); Mean Corpuscular Hemoglobin 30.4 pg (27.0-31.0); Mean Corpuscular Volume 90.5 fL (78.0-102.0); Monocytes Absolute Auto 0.34 K/mm3 (0.10-0.90); Monocytes Percent Auto 5.4 % (2.0-11.0); Neutrophils Absolute Auto 4.4 K/mm3 (1.7-7.2); Neutrophils Percent Auto 69.1 % (50.0-70.0); Platelet Count Result 263 K/mm3 (150-420); Red Blood Count 4.97 M/mm3 (4.70-6.10); Red Cell Distribution Width 14.6 % (11.6-14.4); White Blood Count 6.3 K/mm3 (4.8-10.8)
[2022-12-25 13:28] LABS: Alanine Aminotransferase 86 U/L (16-63); Albumin Level 3.9 g/dL (3.4-5.0); Alkaline Phosphatase 97 U/L (46-116); Anion Gap 10 mmol/L (8-16); Aspartate Amino Transferase 39 U/L (15-37); Bilirubin,Total 0.5 mg/dL (0.00-1.00); Blood Urea Nitrogen 13 mg/dL (7-18); Carbon Dioxide 30 mmol/L (21-32); Chloride 104 mmol/L (98-108); Estimated Glomerular Filt Rate > 60; Glucose 109 mg/dL (70-99); Osmolality Calculated 299 mOsm/kg (285-295); Potassium 3.8 mmol/L (3.5-5.1); Prostate Specific Antigen 2.6 ng/mL (< OR = 4.0); Sodium 144 mmol/L (136-145); Total Protein 7.1 g/dL (6.4-8.2)
[2022-12-29 14:39] LABS: Sex Hormone Binding Globulin 18 nmol/L (22-77)
[2022-12-30 10:50] LABS: Testosterone Free 189.1 pg/mL (35.0-155.0); Testosterone Total 844 ng/dL (250-1100)
== END 2022-12-25 12:19 | disposition home or self-care (01) ==
LOC: CHSLAB 12:22
PROVIDERS: PCP Internal Medicine; Visit Provider Chiropractor
DX: D75.1 Secondary polycythemia (principal); N52.8 Other male erectile dysfunction; E29.1 Testicular hypofunction; Z79.890 Hormone replacement therapy; Z12.5 Encounter for screening for malignant neoplasm of prostate
CPT/HCPCS: 36415; 80053; 82670; 84153; 84270; 84402; 84403; 85025; G0103

== ENCOUNTER 2023-01-08 09:57 | Outpatient (RCR) | payer MEDICARE, OTHER, SELFPAY ==
--- NOTE | 2023-01-08 10:49 | PTOPEVAL1 ---
Assessment and note entered by Heather Ferrer DPT Evaluation Information Assessment Status Evaluation Diagnosis dizziness Onset 12/27/22 Subjective Information Patient reports he has had dizziness for the past few years when he stands up quickly or reaches down to pick something up. He reports he feels light headed rather than room spinning sensation. He reports he started a steriod a few weeks ago that has seemed to help his symptoms and lightheadedness is going away quicker. He also reports his sodium levels were low. Patient reports he is retired. Reported Pain Level Pain Score 4: Self Report Plan of Care PT Services Indicated No These treatments will address the objective and functional deficits as defined above. The patient will be advanced safely and appropriately in order for the patient to progress towards his/her prior level of function. Additional exercises will be introduced and as well as a comprehensive home exercise program upon discharge, if needed, ?to ensure carryover of functional gains achieved in the clinic. This treatment plan has been reviewed and agreement upon by the patient.
--- NOTE | 2023-01-08 10:54 | PTOPEVAL1 ---
Assessment and note entered by Heather Ferrer DPT Evaluation Information Assessment Status Evaluation Diagnosis dizziness Onset 12/27/22 Subjective Information Patient reports he has had dizziness for the past few years when he stands up quickly or reaches down to pick something up. He reports he feels light headed rather than room spinning sensation. He reports he started a steriod a few weeks ago that has seemed to help his symptoms and lightheadedness is going away quicker. He also reports his sodium levels were low. Patient reports he is retired. Reported Pain Level Pain Score 4: Self Report Assessment PT Clinical Summary Patient is a 62 year old male who presents to PT with dizziness. He demontrates negative testing for BPPV or vestibular involvement at this time. He does demonstrate drop in BP with positional changes this date. At this time patient does not need skilled PT services. Plan of Care PT Services Indicated No These treatments will address the objective and functional deficits as defined above. The patient will be advanced safely and appropriately in order for the patient to progress towards his/her prior level of function. Additional exercises will be introduced and as well as a comprehensive home exercise program upon discharge, if needed, ?to ensure carryover of functional gains achieved in the clinic. This treatment plan has been reviewed and agreement upon by the patient.
== END 2023-01-08 18:30 | disposition home or self-care (01) ==
LOC: CHSPT 09:57
PROVIDERS: Visit Provider Otolaryngology
DX: R42 Dizziness and giddiness (principal)
CPT/HCPCS: 97161

== ENCOUNTER 2023-06-11 11:52 | Outpatient (CLI) | payer MEDICARE, OTHER, SELFPAY ==
[2023-06-11 12:26] LABS: Basophils Absolute Auto 0.02 K/mm3 (0.00-0.10); Basophils Percent Auto 0.4 % (0.0-1.0); Eosinophils Absolute Auto 0.06 K/mm3 (0.02-0.50); Eosinophils Percent Auto 1.1 % (1.0-6.0); Hematocrit 46.2 % (40.0-54.0); Hemoglobin 15.1 g/dL (14.0-18.0); Immature Granulocyte Absolute 0.02 K/mm3 (0.00-0.00); Immature Granulocyte Percent A 0.4 % (0.0-0.0); Lymphocytes Absolute Auto 0.93 K/mm3 (1.10-4.50); Lymphocytes Percent Auto 17.7 % (18.0-42.0); Mean Corpuscular HGB Conc 32.7 g/dL (32.0-36.0); Mean Corpuscular Hemoglobin 30.1 pg (27.0-31.0); Mean Platelet Volume 10.4 fl (8.7-11.0); Monocytes Absolute Auto 0.35 K/mm3 (0.10-0.90); Monocytes Percent Auto 6.7 % (2.0-11.0); Neutrophils Absolute Auto 3.9 K/mm3 (1.7-7.2); Neutrophils Percent Auto 73.7 % (50.0-70.0); Platelet Count Result 228 K/mm3 (150-420); Red Blood Count 5.02 M/mm3 (4.70-6.10); Red Cell Distribution Width 14.2 % (11.6-14.4); White Blood Count 5.2 K/mm3 (4.8-10.8)
[2023-06-11 13:14] LABS: Alanine Aminotransferase 67 U/L (16-63); Albumin Level 3.9 g/dL (3.4-5.0); Alkaline Phosphatase 96 U/L (46-116); Anion Gap 8 mmol/L (8-16); Aspartate Amino Transferase 43 U/L (15-37); Bilirubin,Total 0.6 mg/dL (0.00-1.00); Blood Urea Nitrogen 12 mg/dL (7-18); Calcium 9.1 mg/dL (8.5-10.1); Carbon Dioxide 30 mmol/L (21-32); Chloride 100 mmol/L (98-108); Estimated Glomerular Filt Rate > 60; Glucose 121 mg/dL (70-99); Osmolality Calculated 286 mOsm/kg (285-295); Potassium 4.4 mmol/L (3.5-5.1); Prostate Specific Antigen 1.8 ng/mL (< OR = 4.0); Sodium 138 mmol/L (136-145); Total Protein 7.1 g/dL (6.4-8.2)
[2023-06-13 13:29] LABS: Sex Hormone Binding Globulin 12 nmol/L (22-77)
[2023-06-15 20:30] LABS: Testosterone Free 142.8 pg/mL (35.0-155.0); Testosterone Total 558 ng/dL (250-1100)
[2023-06-15 21:42] LABS: Estradiol, Ultrasensitive 9 pg/mL (< OR = 29)
== END 2023-06-11 11:53 | disposition home or self-care (01) ==
PROVIDERS: PCP Internal Medicine; Visit Provider Chiropractor
DX: D75.1 Secondary polycythemia (principal); N52.8 Other male erectile dysfunction; E29.1 Testicular hypofunction; Z79.890 Hormone replacement therapy; Z12.5 Encounter for screening for malignant neoplasm of prostate
CPT/HCPCS: 36415; 80053; 82670; 84153; 84270; 84402; 84403; 85025; G0103

== ENCOUNTER 2023-10-12 08:54 | Outpatient (CLI) | payer MEDICARE, SELFPAY ==
[2023-10-12 10:12] LABS: Alanine Aminotransferase 75 U/L (16-63); Alkaline Phosphatase 81 U/L (46-116); Anion Gap 9 mmol/L (4-12); Aspartate Amino Transferase 27 U/L (15-37); Bilirubin,Total 0.7 mg/dL (0.00-1.00); Blood Urea Nitrogen 15 mg/dL (7-18); Calcium 9.4 mg/dL (8.5-10.1); Carbon Dioxide 30 mmol/L (21-32); Chloride 103 mmol/L (98-108); Cholesterol 147 mg/dL (0-200); Estimated Glomerular Filt Rate > 60; Glucose 118 mg/dL (70-99); HDL Direct 58 mg/dL (40-60); LDL Cholesterol Calculated 63 mg/dL (<130); Osmolality Calculated 295 mOsm/kg (285-295); Potassium 4.3 mmol/L (3.5-5.1); Sodium 142 mmol/L (136-145); Thyroid Stimulating Hormone 1.53 uIU/mL (0.36-3.74); Triglycerides 130 mg/dL (0-150)
[2023-10-16 14:30] LABS: Hemoglobin A1C 5.5 % (<5.7)
== END 2023-10-12 08:55 | disposition home or self-care (01) ==
PROVIDERS: PCP Internal Medicine; Visit Provider Internal Medicine
DX: E78.5 Hyperlipidemia, unspecified (principal); I10 Essential (primary) hypertension
CPT/HCPCS: 36415; 80053; 80061; 83036; 84443

== ENCOUNTER 2023-11-26 09:08 | Outpatient (CLI) | payer MEDICARE, OTHER, SELFPAY ==
--- NOTE | ~2023-11-26 | XR_ITS ---
XR elbow RT min 3V DATE: 11/26/2023 09:20 INDICATION: Generalized right elbow pain, primarily on the medial aspect. No known injury. TECHNIQUE: 4 views COMPARISON: None FINDINGS: No fracture or dislocation or joint effusion. No periosteal reaction or bone destruction. IMPRESSION: No significant abnormality Reviewed, dictated and finalized at location B. IMPRESSION: No significant abnormality
== END 2023-11-26 09:09 | disposition home or self-care (01) ==
PROVIDERS: PCP Internal Medicine; Visit Provider Orthopaedic Surgery
DX: M25.521 Pain in right elbow (principal)
CPT/HCPCS: 73080

== ENCOUNTER 2023-12-11 10:27 | Outpatient (CLI) | payer MEDICARE, OTHER, SELFPAY ==
--- NOTE | ~2023-12-11 | CT_ITS ---
CT Scan of the Chest without Contrast: Clinical Indication: Lung cancer screening, nicotine dependence Technique: Contiguous sections were acquired throughout the chest without intravenous contrast. Dose reduction technique was used on this scan by utilizing automated exposure control and iterative recon struction technique. The dose-length product (DLP) was 342.67 mGy-cm. COMPARISON: 12/07/2022 Findings: There is no evidence of any significant mediastinal, hilar or axillary lymphadenopathy. Coronary radu ry calcium cages are present. There is no evidence of pleural or pericardial effusion. Stable 3 mm nodule noted the left lung base (axial image 93). Images through the upper abdomen reveal no abnormalities. Impression: Lung RADS 2: Benign appearance. 12 month follow-up screening CT advised. Reviewed, dictated and finalized at location . Impression: Lung RADS 2: Benign appearance. 12 month follow-up screening CT advised.
== END 2023-12-11 10:28 | disposition home or self-care (01) ==
PROVIDERS: PCP Internal Medicine; Visit Provider Internal Medicine
DX: Z12.2 Encounter for screening for malignant neoplasm of respiratory organs (principal); Z87.891 Personal history of nicotine dependence
CPT/HCPCS: 71271

== ENCOUNTER 2023-12-20 14:54 | Outpatient (CLI) | payer MEDICARE, OTHER, SELFPAY ==
[2023-12-20 15:29] LABS: Basophils Absolute Auto 0.03 K/mm3 (0.00-0.10); Basophils Percent Auto 0.4 % (0.0-1.0); Eosinophils Absolute Auto 0.06 K/mm3 (0.02-0.50); Eosinophils Percent Auto 0.8 % (1.0-6.0); Hematocrit 50.7 % (37.0-46.0); Hemoglobin 16.4 g/dL (12.4-15.3); Immature Granulocyte Absolute 0.01 K/mm3 (0.00-0.00); Immature Granulocyte Percent A 0.1 % (0.0-0.0); Lymphocytes Absolute Auto 1.22 K/mm3 (1.10-4.50); Lymphocytes Percent Auto 15.3 % (18.0-42.0); Mean Corpuscular HGB Conc 32.3 g/dL (32-36); Mean Corpuscular Hemoglobin 29.8 pg (27.0-31.0); Mean Platelet Volume 10.3 fl (8.7-11.0); Monocytes Absolute Auto 0.42 K/mm3 (0.10-0.90); Monocytes Percent Auto 5.3 % (2.0-11.0); Neutrophils Absolute Auto 6.25 K/mm3 (1.70-7.20); Neutrophils Percent Auto 78.1 % (50.0-70.0); Platelet Count Result 275 K/mm3 (150-420); Red Blood Count 5.51 M/mm3 (4.70-6.10); Red Cell Distribution Width 14.5 % (11.6-14.4)
[2023-12-20 16:01] LABS: Alanine Aminotransferase 68 U/L (16-63); Alkaline Phosphatase 90 U/L (46-116); Anion Gap 10 mmol/L (4-12); Aspartate Amino Transferase 30 U/L (15-37); Bilirubin,Total 0.8 mg/dL (0.00-1.00); Blood Urea Nitrogen 14 mg/dL (7-18); Calcium 9.5 mg/dL (8.5-10.1); Carbon Dioxide 30 mmol/L (21-32); Chloride 106 mmol/L (98-108); Estimated Glomerular Filt Rate > 60; Glucose 102 mg/dL (70-99); Osmolality Calculated 302 mOsm/kg (285-295); Potassium 4.8 mmol/L (3.5-5.1); Prostate Specific Antigen 1.6 ng/mL (< OR = 4.0); Sodium 146 mmol/L (136-145); Total Protein 7.4 g/dL (6.4-8.2)
[2023-12-21 22:13] LABS: Sex Hormone Binding Globulin 17 nmol/L (22-77)
[2023-12-25 10:59] LABS: Testosterone Free 220.7 pg/mL (35.0-155.0); Testosterone Total 864 ng/dL (250-1100)
[2023-12-27 01:38] LABS: Estradiol, Ultrasensitive 15 pg/mL (< OR = 29)
== END 2023-12-20 14:55 | disposition home or self-care (01) ==
LOC: CHSLAB 14:56
PROVIDERS: PCP Internal Medicine; Visit Provider Chiropractor
DX: D75.1 Secondary polycythemia (principal); Z79.890 Hormone replacement therapy; N52.8 Other male erectile dysfunction; E29.1 Testicular hypofunction; Z12.5 Encounter for screening for malignant neoplasm of prostate
CPT/HCPCS: 36415; 80053; 82670; 84153; 84270; 84402; 84403; 85025; G0103

== ENCOUNTER 2024-12-19 08:15 | Outpatient (CLI) | payer MEDICARE, OTHER, SELFPAY ==
--- NOTE | ~2024-12-19 | CT_ITS ---
CT Scan of the Chest without Contrast: Clinical Indication: Lung cancer screening, nicotine dependence Technique: Contiguous sections were acquired throughout the chest without intravenous contrast. Dose reduction technique was used on this scan by utilizing automated exposure control and iterative recon struction technique. The dose-length product (DLP) was 263.95 mGy-cm. COMPARISON: 12/11/2023 Findings: There is no evidence of any significant mediastinal, hilar or axillary lymphadenopathy. The mediastin al soft tissues appear normal. There is no evidence of pleural or pericardial effusion. Stable 3 mm left basilar pulmonary nodule. Images through the upper abdomen reveal haziness and central mesentery with small shotty lymph nodes, compatible with mesenteric panniculitis.. Impression: Lung RADS 2: Benign appearance. 12 month follow-up screening CT advised. Mesenteric panniculitis. Reviewed, dictated and finalized at [facility]. Impression: Lung RADS 2: Benign appearance. 12 month follow-up screening CT advised. Mesenteric panniculitis.
--- OUTSIDE RECORDS SUMMARY | 2024-12-19 08:20 | XMS_ITS | Clinical Summary ---
Author Organization [facility] Address [address] [place] [address] Phone Care Team Providers Care Travel Writer Name Role Phone Provider, Not On File Primary Care Provider Unav ailable Social History Tobacco Use Types Packs/Day Years Used Date Smoking Tobacco: Never Assessed Sex and Gender Information Value Date Recorded Sex Assigned at Not on file Legal Sex Male 10:56 PM CDT Gender Identity Not on file Sexual Orientation Not on file Plan of Treatment Health Maintenance Due Date Last Done Comments Hepatitis C Virus (HCV) Screening 1960 TdaP Immunization 1960 Colonoscopy 2003 Colorectal Cancer Screening 2003 Cologuard 2008 Immunochemical Fecal Occult Blood 2008 Pneumococcal Immunization (5 0+ years) (1 of 1 - PCV) 2008 Zoster Immunization (1 of 2) 2008 PSA Discussion 2013 Influenza Immunization (#1) 2024 SARS-COV-2 Immunization ( season) 2024 Respiratory Syncytial Virus (RSV) Immunization (Adult) (1 - 1-dose 75+ series) 2033 Hepatitis B Immunization Aged Out No longer eligible based on patient's age to complete this topic Meningococcal Immunization (ACWY) Aged Out No longer eligible based on patient's age to complete this topic Rotavirus Immunization Aged Out No lo nger eligible based on patient's age to complete this topic Insurance [facility] Care Teams Travel Writer Relationship Specialty Start Date End Date Provider, Not On File [place] PCP - General 07/14/16
[2024-12-19 08:38] LABS: Basophils Absolute Auto 0.03 K/mm3 (0.00-0.10); Basophils Percent Auto 0.5 % (0.0-1.0); Eosinophils Absolute Auto 0.13 K/mm3 (0.02-0.50); Eosinophils Percent Auto 2.3 % (1.0-6.0); Hematocrit 47.4 % (37.0-46.0); Hemoglobin 15.4 g/dL (12.4-15.3); Immature Granulocyte Absolute 0.01 K/mm3 (0.00-0.00); Immature Granulocyte Percent A 0.2 % (0.0-0.0); Lymphocytes Absolute Auto 1.38 K/mm3 (1.10-4.50); Lymphocytes Percent Auto 24.7 % (18.0-42.0); Mean Corpuscular HGB Conc 32.5 g/dL (32-36); Mean Corpuscular Hemoglobin 29.3 pg (27.0-31.0); Mean Corpuscular Volume 90.1 fL (78.0-102.0); Mean Platelet Volume 10.3 fl (8.7-11.0); Monocytes Absolute Auto 0.51 K/mm3 (0.10-0.90); Monocytes Percent Auto 9.1 % (2.0-11.0); Neutrophils Absolute Auto 3.53 K/mm3 (1.70-7.20); Neutrophils Percent Auto 63.2 % (50.0-70.0); Platelet Count Result 239 K/mm3 (150-420); Red Blood Count 5.26 M/mm3 (4.70-6.10); Red Cell Distribution Width 13.6 % (11.6-14.4); White Blood Count 5.6 K/mm3 (4.8-10.8)
[2024-12-19 08:39] LABS: Add Urine Microscopic? NO; Appearance Urine Clear (Clear); Bilirubin Urine Negative (Negative); Blood Urine Trace-intact (Negative); Color Urine Yellow (Yellow); Glucose Urine UA Negative (Negative); Ketones Urine Negative (Negative); Leukocyte Esterase Ur Negative (Negative); Nitrate Urine Negative (Negative); Protein Urine Negative (Negative); Specific Grav Ur >= 1.030 (1.010-1.020); pH Urine 5.5 (5.0-8.0)
[2024-12-19 08:52] LABS: Hemoglobin A1C 5.4 % (<5.7)
[2024-12-19 09:01] LABS: Alanine Aminotransferase 39 U/L (6-50); Albumin Level 4.4 g/dL (3.5-5.1); Alkaline Phosphatase 76 U/L (38-126); Anion Gap 5 mmol/L (4-12); Aspartate Amino Transferase 28 U/L (17-59); Bilirubin,Total 0.5 mg/dL (0.2-1.3); Blood Urea Nitrogen 12 mg/dL (9-20); Calcium 9.1 mg/dL (8.4-10.2); Carbon Dioxide 28 mmol/L (22-30); Chloride 107 mmol/L (98-107); Cholesterol 132 mg/dL (0-200); Estimated Glomerular Filt Rate > 60; Glucose 92 mg/dL (65-110); HDL Direct 53 mg/dL; LDL Cholesterol Calculated 61 mg/dL (<130); Osmolality Calculated 289 mOsm/kg (285-295); Potassium 4.5 mmol/L (3.4-5.0); Sodium 140 mmol/L (137-145); Total Protein 6.7 g/dL (6.3-8.2); Triglycerides 91 mg/dL (<150)
[2024-12-19 09:32] LABS: Prostate Specific Antigen 2.7 ng/mL (< OR = 4.0)
[2024-12-21 03:03] LABS: Sex Hormone Binding Globulin 18 nmol/L (22-77)
[2024-12-24 11:39] LABS: Testosterone Free 201.1 pg/mL (35.0-155.0); Testosterone Total 826 ng/dL (250-1100)
== END 2024-12-19 08:16 | disposition home or self-care (01) ==
PROVIDERS: PCP Internal Medicine; Visit Provider Internal Medicine
DX: Z12.2 Encounter for screening for malignant neoplasm of respiratory organs (principal); Z87.891 Personal history of nicotine dependence; Z79.890 Hormone replacement therapy; D75.1 Secondary polycythemia; N52.8 Other male erectile dysfunction; E29.1 Testicular hypofunction; Z12.5 Encounter for screening for malignant neoplasm of prostate; R73.01 Impaired fasting glucose; E78.5 Hyperlipidemia, unspecified; I10 Essential (primary) hypertension; K65.4 Sclerosing mesenteritis
CPT/HCPCS: 36415; 71271; 80053; 80061; 81003; 82670; 83036; 84153; 84270; 84402; 84403; 84443; 85025

== ENCOUNTER 2025-01-23 09:47 | Outpatient (CLI) | payer MEDICARE, OTHER, SELFPAY ==
--- NOTE | ~2025-01-23 | CT_ITS ---
CT of the Abdomen and Pelvis: Indication: Mesenteric panniculitis Technique: 2.5 mm axial scans were obtained through the abdomen and pelvis following intravenous adm inistration of 100 cc of Omnipaque 350. Dose reduction technique was used on this scan by utilizing a utomated exposure control and iterative reconstruction technique. The dose-length product (DLP) was 1 492.55 mGy-cm. Findings: Scans through the lung bases are unremarkable. The liver, spleen, gallbladder, adrenals and kidneys are within normal limits, aside from bilateral r enal cysts. 2.5 cm cystic mass present at the uncinate processes the pancreas ((axial image 76). Ther e are atherosclerotic calcifications of the aorta. No lymphadenopathy. No bowel obstruction or bowel wall thickening. Haziness in the central mesentery is compatible with m esenteric panniculitis, with small shotty lymph nodes.. Images through the pelvis were performed. Urinary bladder unremarkable. There is distal right hydrour eter, uncertain significance/etiology. No pelvic mass seen. No ascites. Impression: Mesenteric panniculitis. Mild distal right hydroureter, uncertain significance/etiology. 2.5 cm cystic mass at the uncinate process of the pancreas. Reviewed, dictated and finalized at location M. Impression: Mesenteric panniculitis. Mild distal right hydroureter, uncertain significance/etiology. 2.5 cm cystic mass at the uncinate process of the pancreas.
--- OUTSIDE RECORDS SUMMARY | 2025-01-23 09:53 | XMS_ITS | Clinical Summary ---
Author Organization [facility] Address [address] [place] [address] Care Team Providers Care Layout Artist Name Role Phone Deshawn Christensen MD Primary Care Provider [phone] Susan Terrell MD Unavailable [phone] Frank Flora Daljit ANP-BC Unavailable + Allergies Active Allergy Reactions Criticality Noted Date Comments Sertraline Other (see comment) 06/25/2019 Mood changes Medications omeprazole EC 20 MG tablet Take 1 tablet (20 mg total) by mouth daily as needed. Active lorazepam 1 MG tablet Take 1 tablet (1 mg total) by mouth nightly as needed. Active aspirin 81 MG chewable tablet Chew 1 tablet (81 mg total) by mouth daily. 30 tablet 9 Active cetirizine 10 MG tablet Take 1 tablet (10 mg total) by mouth daily. Active Pediatric Multiple Vitamins (MULTI-VITAM OR) Take 1 tablet by mouth daily. Active verapamil (CALAN SR) 120 MG ER tablet Take 1 tablet (120 mg total) by mouth daily. 4 Active rosuvastatin (CRESTOR) 10 MG tabletIndications:H yperlipidemia, unspecified hyperlipidemia type TAKE 1 TABLET (10 MG TOTAL) BY MOUTH DAILY. 90 tablet 3 5 Active Active Problems Problem Noted Date Diagnosed Date Coronary artery calcification seen on CT scan Lightheadedness 06/26/2019 Osteoarthrosis involving lower leg 07/20/2014 Overview (06/26/2019): Overview: 2015 IMO Updt Orthostatic hypotension Dyspnea Abnormal EKG Male erectile disorder Mild carotid artery disease Mixed hyperlipidemia Resolved Problems Problem Noted Date Diagnosed Date Resolved Date Current smoker 12/31/2022 Family History Medical History Relation Comments Glaucoma Father Macular Degeneration Father Osteoarthritis Mother Osteoporosis Mother Prostate Cancer Paternal Grandfather Relation Status Comments Father Maternal Grandfather Maternal Grandmother Mother Paternal Grandfather Paternal Grandmother Social History Tobacco Use Types Packs/Day Years Used Date Smoking Tobacco: Never Smokeless Tobacco: Never Tobacco Cessation:Counseling Given: Not Answered Alcohol Use Standard Drinks/Week Comments Yes 0 (1 standard drink = 0.6 oz pur e alcohol) 1-2 beers daily AUDIT-C Answer Date Recorded Frequency of Alcohol Consumption 2-3 times a wee k 06/25/2019 Average Number of Drinks Not on file 019 Frequency of Binge Drinking Not on file 06/08 Sex and Gender Information Value Date Recorded Sex Assigned at Not on file 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 Gender Identity Male 05/30/2023 2:32 PM SEAFOOD PROCESS WORKER Sexual Orientation Not on file Occupation Industry Job Start Date Job End Date Construction Not on file Not on file Not on file Last Filed Vital Signs Vital Sign Reading Time Taken Comments Blood Pressure 130/68 12/31/2023 5:13 PM CDT Pulse 77 12/31/2023 5:13 PM CDT Temperature - - Respiratory Rate 12 12/31/2023 5:13 PM CDT Oxygen Saturation 98% 12/31/2023 5:13 PM CDT Inhaled Oxygen Concentration - - Weight 117.5 kg (259 lb) 12/31/2023 5:13 PM CDT Height 188 cm (6' 2) 12/31/2023 5:13 PM CDT Body Mass Index 33.25 12/31/2023 5:13 PM CDT Plan of Treatment Health Maintenance Due Date Last Done Comments Colorectal Cancer Screening Colonoscopy (10 Years) 1958 Hepatitis C 1976 DTaP, Tdap and Td Vaccines ( 1 - Tdap) 1977 Pneumococcal Vaccine: 50+ Ye ars (1 of 1 - PCV) 2008 Zoster Vaccines (1 of 2) 2008 Annual Medicare Wellness Visit 2023 COVID-19 Vaccine ( - 2023-2 5 season) 2024 RSV Immunization or 60+ Years (1 - 1-dose 75+ series) 2033 Meningococcal B Vaccine Aged Out No l onger eligible based on patient's age to complete this topic Meningococcal Vaccine Aged Out No reddy keyon eligible based on patient's age to complete this topic RSV Immunizations Under 20 Months Aged Out No longer eligible based on patient's age to complete this topic Insurance [employer] Member Subscriber Plan / Payer ( fective 2019-Present) Name:Beltran Levin Relation to Subscriber:Self Name:Beltran Levin Payer ID:Not on file Group ID:[id number] Type:Not on file Address: [address] [address] [place] [address] [employer] Member Subscriber Plan / Payer ( fective 2019-Present) Name:Beltran Levin Relation to Subscriber:Self Name:Beltran Levin Payer ID:Not on file Group ID:[id number] Type:Not on file Address: [address] [address] [place] [address] Care Teams Layout Artist Relationship Specialty Start Date End Date Deshawn Christensen MD [address] [place] [id number] PCP - General INTERNAL MEDICINE 06/30/19 Susan Terrell MD [address] [place] [phone] INTERVENTIONAL CARDIOLOGY 10/17/23 Flora Marie, [facility]- [address] [place] [address] Nurse Practitioner NURSE PRACTITIONER ADULT HEALTH 10/17/23
--- OUTSIDE RECORDS SUMMARY | 2025-01-23 09:53 | XMS_ITS | Patient Health Record ---
Author Organization [facility] Address [address] [place], [place] [id number] Care Team Providers Care Coroner Technician Name Role Phone TADEO MARINELLI Unavailable [phone] Deshawn Christensen Unavailable Unavailable Reason For Referral No Information Medications Medication SIG (Take, Route, Frequency, Duration) Notes Start Date End Date Status LORazepam 1 MG Oral Tablet ORAL lorazepam 1 MG Oral TabletOriginal Medicationlorazepam 1 MG Oral Tablet *Reorder from [employer] for eRx and Interaction Alerts* 05/10/2015 Active Plan Of Treatment No Information Insurance Providers Payer Name Payer Address Payer Phone Subscriber Number Group Number Insured Name Patient Relationship to Insured Coverage Start Date Coverage End Date C[employer] [address] [place]ONNATHAN LAMB, [place] [id number] [phone] [id number] MONICA VIDES Self - patient is the insured
--- OUTSIDE RECORDS SUMMARY | 2025-01-23 09:53 | XMS_ITS | Clinical Summary ---
Author Organization [facility] Address [address] [place] [address] Phone Care Team Providers Care Senior Bioinformatics Scientist Name Role Phone Provider, Not On File [...] patient's age to complete this topic Insurance [facility] Care Teams Senior Bioinformatics Scientist Relationship Specialty Start Date End Date Provider, Not On File [place] PCP - General 07/14/16
--- OUTSIDE RECORDS SUMMARY | 2025-01-23 09:53 | XMS_ITS | Encounter Summary ---
Author Organization [facility] Address [address] [place] [address] Care Team Providers Care Regrinder Operator Name Role Phone Deshawn Christensen MD Primary Care Provider [phone] Deshawn Christensen MD Primary Care Provider [phone] Jamel Pacheco MD Unavailable [phone] Antoinette Galvez APRN, COMMUNICATIONS ELECTRICIAN SUPERVISOR-C Unavailable Susan Terrell MD Unavailable [phone] Flora Marie ANP-BC Unavailable [phone] Encounter Details Date Type Department Care Team (Late st Contact Info) Description 06/25/2019 Abstract [facility] [address] [place] [address] Abstract, Doc [facility] Social History Tobacco Use Types Packs/Day Years Used Date Smoking Tobacco: Every Day Cigarettes Alcohol Use Standard Drinks/Week Comments Yes 0 (1 standard drink = 0.6 oz pur e alcohol) AUDIT-C Answer Date Recorded Frequency of Alcohol Consumption 2-3 times a wee k 06/25/2019 Average Number of Drinks Not on file 019 Frequency of Binge Drinking Not on file 06/08 Sex and Gender Information Value Date Recorded Sex Assigned at Not on file 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 Gender Identity Male 05/30/2023 2:32 PM FRENCH PASTRY COOK Sexual Orientation Not on file 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 NEUTROPHILS 3.7 ABS. LYMPHOCYTES 2.11 ABS. MONOCYTES 0.42 ABS. BASOPHILS 0.04 06/11/2019 us Doc [facility] Abstract LABORATORY Final Result documented in this encounter Visit Diagnoses Not on filedocumented in this encounter Additional Health Concerns Infection Onset Date Last Indicated Resolved Time COVID-19 Rule Out 03/15/2020 03/15/2020 03/16/2020 2:51 PM CDT documented as of this encounter Care Teams Regrinder Operator Relationship Specialty Start Date End Date Deshawn Christensen MD PCP - General INTERNAL MEDICINE 06/20/19 06/29/19 Deshawn Christensen MD [address] [place] [id number] PCP - General INTERNAL MEDICINE 06/30/19 Jamel Pacheco MD [address] [place] [address] Consulting Physician CARDIOVASCULAR DISEASE 02/24/21 Antoinette Galvez, ROSALINE, COMMUNICATIONS ELECTRICIAN SUPERVISOR-C [address] [facility] [address] [place] [address] NURSE PRACTITIONER 02/24/21 10/16/23 Susan Terrell MD [address] [facility] [address] [place] [address] INTERVENTIONAL CARDIOLOGY 10/17/23 Flora Marie ANP- [address] [place] [address] Nurse Practitioner NURSE PRACTITIONER ADULT HEALTH 10/17/23 documented as of this encounter
[2025-01-23 10:30] LABS: Estimated Glomerular Filt Rate > 60
== END 2025-01-23 09:48 | disposition home or self-care (01) ==
LOC: CHSIMG 09:49
PROVIDERS: PCP Internal Medicine; Visit Provider Internal Medicine
DX: R93.89 Abnormal findings on diagnostic imaging of other specified body structures (principal)
CPT/HCPCS: 74177; Q9967

== ENCOUNTER 2025-04-30 11:22 | Outpatient (CLI) | payer MEDICARE, OTHER, SELFPAY ==
--- NOTE | ~2025-04-30 | XR_ITS ---
EXAMINATION: XR foot RT min 3V, 04/30/2025 11:30 CDT HISTORY: M79.671 - Pain in right foot COMPARISON: No comparisons available. Findings: No acute fracture or malalignment. Moderate degenerative changes first metatarsal-phalangeal joint Soft tissues unremarkable. Impression: No acute fracture or malalignment. Reviewed, dictated and finalized at location P. Impression: No acute fracture or malalignment.
== END 2025-04-30 11:23 | disposition home or self-care (01) ==
LOC: CHSIMG 11:23
PROVIDERS: PCP Internal Medicine; Visit Provider Orthopaedic Surgery
DX: M79.671 Pain in right foot (principal)
CPT/HCPCS: 73630

== ENCOUNTER 2025-06-17 09:03 | Outpatient (CLI) | payer MEDICARE, SELFPAY ==
[2025-06-17 10:04] LABS: Alanine Aminotransferase 59 U/L (6-50); Albumin Level 5.0 g/dL (3.5-5.1); Alkaline Phosphatase 79 U/L (38-126); Anion Gap 11 mmol/L (4-12); Aspartate Amino Transferase 37 U/L (17-59); Bilirubin,Total 0.8 mg/dL (0.2-1.3); Blood Urea Nitrogen 18 mg/dL (9-20); Calcium 10.1 mg/dL (8.4-10.2); Carbon Dioxide 26 mmol/L (22-30); Chloride 106 mmol/L (98-107); Cholesterol 145 mg/dL (0-200); Estimated Glomerular Filt Rate > 60; Glucose 97 mg/dL (65-110); HDL Direct 74 mg/dL; Osmolality Calculated 297 mOsm/kg (285-295); Potassium 4.9 mmol/L (3.4-5.0); Sodium 143 mmol/L (137-145); Total Protein 7.6 g/dL (6.3-8.2); Triglycerides 109 mg/dL (<150)
== END 2025-06-17 09:04 | disposition home or self-care (01) ==
LOC: CHSLAB 09:05
PROVIDERS: PCP Internal Medicine; Visit Provider Internal Medicine
DX: E78.5 Hyperlipidemia, unspecified (principal)
CPT/HCPCS: 36415; 80053; 80061